=== PATIENT | male | born 2000 | race Caucasian/White ===

== ENCOUNTER 2020-05-25 12:49 | Emergency (ER) | payer SELFPAY ==
[2020-05-25 12:58] VITALS: BP 140/55; PULSE 101; RESP 16; TEMP 36.4; O2SAT 95
--- NOTE | 2020-05-25 13:14 | XRR_ITS ---
PROCEDURE INFORMATION: Exam: XR Chest Exam date and time: 05/25/2020 1:18 PM Age: 19 years old Clinical indication: Other: Reduced breath sounds TECHNIQUE: Imaging protocol: XR of the chest Views: 1 view. COMPARISON: No relevant prior studies available. FINDINGS: Lungs: Unremarkable. No consolidation. Pleural spaces: Unremarkable. No pleural effusion. No pneumothorax. Heart/Mediastinum: Unremarkable. No cardiomegaly. Bones/joints: Unremarkable. XR/XR chest 1V portable [id number] IMPRESSION: No acute findings.
--- NOTE | 2020-05-25 13:14 | CT_ITS ---
WS: [id number] CT HEAD NONCONTRAST HISTORY: possible new seizure TECHNIQUE: Contiguous axial imaging performed through the brain in 2.5 mm imaging. Bone and soft tiss ue windows. Sagittal and coronal reformats reviewed. All CT scans at [facility] use at ast one of these dose optimization techniques: automated exposure control; mA and/or kV adjustment pe r patient size (includes targeted exams where dose is matched to clinical indication); or iterative r econstruction. DLP: 885.06 mGy.cm COMPARISON: 05/25/2020 No acute intracranial hemorrhage, midline shift or mass effect. No atrophy or prior infarcts or herniation. Ventricles: Normal size with no hydrocephalus. Paranasal sinuses: As visualized are clear. Mastoid air cells: Well pneumatized. Calvarium and scalp: Skull is intact with no soft tissue edema or swelling. CT/CT head wo con* [id number] IMPRESSION: Negative head CT.
--- NOTE | 2020-05-25 13:16 | ECG_ITS ---
[facility] Test Date: 2020-05-25 Pat Name: Ramin Sandoval Department: Room: Gender: Male Crane Operator: : 2000 Requested By: Deny Chawla Order Number: [id number] Santiago MD: Jeffery Harp M.D. Measurements Intervals [place] Rate: 75 P: 37 IL: 168 QRS: 87 QRSD: 104 T: 43 QT: 377 QTc: 424 Interpretive Statements SINUS RHYTHM No previous ECG available for comparison Electronically Signed On 05-25-2020 20:19:56 CDT by Jeffery Harp M.D. [id number]
--- NOTE | 2020-05-25 13:17 | ED_ITS ---
HPI - Seizure General: Chief Complaint: Seizure Stated Complaint: SEIZURE Time Seen by Provider: 05/25/20 12:52 History of Present Illness: HPI Narrative: The patient is a 19-year-old male who comes to the ER after he thinks he had a seizure. He has a family history of seizure his mother has seizures. He says he used a dab yesterday which is apparently marijuana concentrate. He says he had no effect from it then but today he was hanging out with his friend and he says the next thing he knows he woke up in an ambulance. Report from the ambulance was that his friend said he had a seizure for approximately a minute. EMS gave him a milligram of Ativan with no effect and arrived at the ER. He is alert and oriented x3 though does appear slightly confused. Has a history of autism he says. We do not have a good description of what the seizure looked like from EMS or bystander. MD complaint: possible seizure Description of Episode: loss of consciousness Witnessed: Yes - by Bystander Trauma: No Seizure History: No Place: Home Possible Precipitating Event: drug use Associated symptoms: Deny chest pain or confusion Review of Systems General: Reports: 10 or more systems reviewed and unremarkable except in HPI and below Const: Denies: fatigue Eyes: Denies: change in vision, blurry vision or eye redness ENMT: Denies: throat pain, swelling of lips/tongue, ear or mastoid pain or nasal congestion Card: Denies: chest pain, palpitations, irregular heart rhythm, edema, dyspnea on exertion or orthopnea Resp: Denies: dyspnea, productive cough or non-productive cough GI: Denies: abdominal pain, diarrhea or GI cramping : Denies: flank pain, urinary frequency or urinary urgency Musc: Denies: neck pain, back pain, extremity pain, joint pain, joint redness, limited range of motion or muscle weakness Skin/Breast: Denies: rash, pruritus, erythema, skin pain or skin tenderness Neuro: Denies: headache(s), numbness in extremities, weakness in extremities, sensory changes, difficulty walking, dizziness, confusion or Slurred speech present Psych: Denies: anxiety or depression Endo: Denies: polyuria All/Imm: Denies: urticaria, throat swelling or tongue swelling PFSH ED PFSH: Social History (Updated 08/01/19 @ 18:16 by COLTEN Workman Smoking and tobacco status: never smoked Alcohol intake: never Physical Exam Const: COMMON NORMALS: no acute distress, average body habitus, patient oriented x3, no limitations, healthy appearing, alert and well nourished GENERAL APPEARANCE: cooperative, comfortable, well kempt and well developed ORIENTATION/CONSCIOUSNESS: Yes awake, Yes oriented to person, Yes oriented to place and Yes oriented to time HENMT: COMMON NORMALS: normocephalic, external ears normal and Normal external nose present HEAD & SCALP: normal to inspection and normocephalic NOSE: Normal external nose present EXTERNAL EAR: Yes external ears normal MOUTH: Normal oral and palatal mucosa present THROAT: posterior oropharynx normal Eye: COMMON NORMALS: Equal, round and reactive pupils present and EOMs intact bilaterally GENERAL EYE: appearance normal, both eyes and all related structures PUPIL: Yes Equal, round and reactive pupils present Neck/C-Spine: COMMON NORMALS: full ROM, no lymphadenopathy, no meningeal signs and no JVD GENERAL: Yes normal visual inspection Lymph: LYMPHATIC: no lymphadenopathy noted Chest: COMMONS NORMALS: normal inspection of the chest and normal palpation of entire chest wall Resp: COMMON NORMALS: normal respiratory effort, No retractions, No use of accessory muscles, clear to auscultation bilaterally and percussion normal EFFORT & INSPECTION: Yes able to speak in complete sentences AUSCULTATION: clear to auscultation bilaterally PERCUSSION: percussion normal Cardio: COMMON NORMALS: no JVD, regular rate, regular rhythm, S1 normal heart sound present, S2 normal heart sound present and Peripheral pulses 2+ throughout RATE: regular rate RHYTHM: regular rhythm HEART SOUNDS: S1 normal heart sound present and S2 normal heart sound present PERIPHERAL PULSES: Peripheral pulses 2+ throughout GI: COMMON NORMALS: Normal to inspection, nondistended, normoactive bowel sounds present, Soft to palpation, non-tender and no masses INSPECTION: Yes normal to inspection PALPATION: Yes Soft to palpation : COMMON NORMALS: Yes no CVA tenderness BLADDER/KIDNEY EXAM: Yes no CVA tenderness Back/Pelvis: COMMON NORMALS: no CVA tenderness, thoracic and lumbar spine normal to inspection, no thoracic nor lumbar tenderness and thoraco-lumbar ROM normal Extremity: COMMON NORMALS: normal to inspection, full ROM, capillary refill normal, no joint enlargement and no pedal edema GENERAL: Yes normal exam except as noted Neuro: COMMON NORMALS: patient oriented x3, CN's II-XII intact bilaterally, moves all extremities, no focal motor deficits, no sensory deficits noted and gait normal SENSORIUM/ORIENTATION: Yes alert, Yes oriented to person, Yes oriented to place and Yes oriented to time MENINGEAL SIGNS: Yes no meningeal signs Psych: COMMON NORMALS: mental status grossly normal, Normal thought process present, cooperative, normal affect and speech normal APPEARANCE: Yes well kempt ATTITUDE: Yes calm SPEECH: Yes normal speech THOUGHT PROCESS: Normal thought process present Skin: COMMON NORMALS: no rashes or lesions noted GENERAL SKIN EXAM: no r ashes or lesions noted Course Vital Signs: Vital signs: Vital Signs Temperature 97.6 F 05/25/20 12:58 Pulse Rate 66 05/25/20 20:21 Respiratory Rate 14 05/25/20 20:21 Blood Pressure 124/76 05/25/20 20:21 Pulse Oximetry 99 05/25/20 20:21 MDM - Seizure MDM Narrative: Medical decision making narrative: Patient likely had a seizure based on his lactic acid and symptoms. This is a new onset first-time seizure. He does have a family history his mother has epilepsy. He did use synthetic marijuana yesterday but that has been an entire day and he says he had no effect from it. Unclear if he knows what drug he took at all. However his lactic acid was severely elevated at 8.8 on arrival and repeat was 1.7 after fluids. He is stable for discharge. Discussed with Dr. Urbano who recommended outpatient EEG and follow-up with her. Placed case management referral to help with this. ER with worsening symptoms as he may require Keppra daily if he has more seizures. Discussed with him not to operate machinery or nor swim until he is at least 6 months seizure-free and cleared by neurology Lab Data: Labs: Lab Results 05/25/20 05/25/20 05/25/20 Range/Units 13:09 13:09 13:09 WBC 5.5 (4.5-13.0) 10^3/ uL RBC 5.07 (4.1-5.3) 10^6/u L Hgb 14.3 (11.7-16.6) g/dL Hct 43.1 (42.0-52.0) % MCV 85.0 (80-94) fL MCH 28.2 (28.0-34.0) pg MCHC 33.2 (30.0-36.0) g/dL RDW 12.7 (12.1-15.1) % Plt Count 216 (130-400) 10^3/c mm MPV 11.6 H (7.4-10.4) fL Neut % (Auto) 56.3 % Lymph % (Auto) 30.5 % [place] % (Auto) 8.2 % Eos % (Auto) 1.6 % Baso % (Auto) 0.7 % Neut # (Auto) 3.09 (1.8-8.0) 10^3/u L Lymph # (Auto) 1.7 (1.5-6.5) 10^3/u L [place] # (Auto) 0.5 (0.2-0.9) 10^3/u L Eos # (Auto) 0.1 (0.0-0.8) 10^3/u L Baso # (Auto) 0.0 (0.0-0.1) 10^3/u L Nucleated RBC % (a uto) 0 % Nucleated RBCs # 0.0 /100WBC Sodium Cancelled Potassium Cancelled Chloride Cancelled Carbon Dioxide Cancelled Anion Gap Cancelled BUN Cancelled Creatinine Cancelled GFR Calculation Cancelled Glucose Cancelled POC Glucose (70-110) mg/dL Calculated Osmolal ity Cancelled Lactate 8.8 H* (0.5-2.2) mmol/L Calcium Cancelled Total Bilirubin Cancelled AST Cancelled ALT Cancelled Alkaline Phosphata se Cancelled Creatine Kinase Cancelled Troponin T Gen 5 n g/L (0-15) ng/L Total Protein Cancelled Albumin Cancelled Globulin Cancelled TSH Cancelled Urine Color (Yellow) Urine Appearance (CLEAR) Urine pH (5-7) Ur Specific Gravit y (1.005-1.030) Urine Protein (Negative) Urine Glucose (UA) (Normal) Urine Ketones (Negative) Urine Blood (Negative) Urine Nitrate (Negative) Urine Bilirubin (Negative) Urine Urobilinogen (Negative) mg/dL Ur Leukocyte Lyudmila ase (Negative) Urine RBC (0-2) /hpf Urine WBC (0-5) /hpf Ur Squamous Epith Cells (0-5) /hpf Amorphous Sediment Urine Bacteria (NONE) /hpf Urine Opiates Scre en (Negative) ng/mL Ur Barbiturates Sc reen (Negative) ng/mL Ur Phencyclidine S crn (Negative) ng/mL Ur Amphetamines Sc reen (Negative) ng/mL U Benzodiazepines Scrn (Negative) ng/mL Urine Cocaine Scre en (Negative) ng/mL U Marijuana (THC) Screen (Negative) ng/mL Ethyl Alcohol Cancelled 05/25/20 05/25/20 05/25/20 Range/Units 13:20 13:20 13:44 WBC (4.5-13.0) 10^3/ uL RBC (4.1-5.3) 10^6/u L Hgb (11.7-16.6) g/dL Hct (42.0-52.0) % MCV (80-94) fL MCH (28.0-34.0) pg MCHC (30.0-36.0) g/dL RDW (12.1-15.1) % Plt Count (130-400) 10^3/c mm MPV (7.4-10.4) fL Neut % (Auto) % Lymph % (Auto) % [place] % (Auto) % Eos % (Auto) % Baso % (Auto) % Neut # (Auto) (1.8-8.0) 10^3/u L Lymph # (Auto) (1.5-6.5) 10^3/u L [place] # (Auto) (0.2-0.9) 10^3/u L Eos # (Auto) (0.0-0.8) 10^3/u L Baso # (Auto) (0.0-0.1) 10^3/u L Nucleated RBC % (a uto) % Nucleated RBCs # /100WBC Sodium Potassium Chloride Carbon Dioxide Anion Gap BUN Creatinine GFR Calculation Glucose POC Glucose 91 (70-110) mg/dL Calculated Osmolal ity Lactate (0.5-2.2) mmol/L Calcium Total Bilirubin AST ALT Alkaline Phosphata se Creatine Kinase Troponin T Gen 5 n g/L (0-15) ng/L Total Protein Albumin Globulin TSH Urine Color Yellow (Yellow) Urine Appearance Clear (CLEAR) Urine pH 7 (5-7) Ur Specific Gravit y 1.015 (1.005-1.030) Urine Protein Neg (Negative) Urine Glucose (UA) Norm (Normal) Urine Ketones 1+ H (Negative) Urine Blood 2+ H (Negative) Urine Nitrate Negative (Negative) Urine Bilirubin Neg (Negative) Urine Urobilinogen Norm (Negative) mg/dL Ur Leukocyte Lyudmila ase Negative (Negative) Urine RBC 0-4 H (0-2) /hpf Urine WBC None (0-5) /hpf Ur Squamous Epith Cells 0-4 H (0-5) /hpf Amorphous Sediment Not Reportable Urine Bacteria Trace (NONE) /hpf Urine Opiates Scre en Negative (Negative) ng/mL Ur Barbiturates Sc reen Negative (Negative) ng/mL Ur Phencyclidine S crn Negative (Negative) ng/mL Ur Amphetamines Sc reen Negative (Negative) ng/mL U Benzodiazepines Scrn Negative (Negative) ng/mL Urine Cocaine Scre en Negative (Negative) ng/mL U Marijuana (THC) Screen Positive H (Negative) ng/mL Ethyl Alcohol 05/25/20 05/25/20 05/25/20 Range/Units 14:07 14:07 17:36 WBC (4.5-13.0) 10^3/ uL RBC (4.1-5.3) 10^6/u L Hgb (11.7-16.6) g/dL Hct (42.0-52.0) % MCV (80-94) fL MCH (28.0-34.0) pg MCHC (30.0-36.0) g/dL RDW (12.1-15.1) % Plt Count (130-400) 10^3/c mm MPV (7.4-10.4) fL Neut % (Auto) % Lymph % (Auto) % [place] % (Auto) % Eos % (Auto) % Baso % (Auto) % Neut # (Auto) (1.8-8.0) 10^3/u L Lymph # (Auto) (1.5-6.5) 10^3/u L [place] # (Auto) (0.2-0.9) 10^3/u L Eos # (Auto) (0.0-0.8) 10^3/u L Baso # (Auto) (0.0-0.1) 10^3/u L Nucleated RBC % (a uto) % Nucleated RBCs # /100WBC Sodium 135 L Potassium 4.3 Chloride 100 Carbon Dioxide 26 Anion Gap 13.3 BUN 17 Creatinine 1.0 GFR Calculation 95.3 Glucose 89 POC Glucose (70-110) mg/dL Calculated Osmolal ity 281 L Lactate 1.7 (0.5-2.2) mmol/L Calcium 9.2 Total Bilirubin 0.4 AST 29 ALT 43 H Alkaline Phosphata se 87 Creatine Kinase 199 Troponin T Gen 5 n g/L 6 (0-15) ng/L Total Protein 7.8 Albumin 4.4 Globulin 3.4 TSH 4.16 Urine Color (Yellow) Urine Appearance (CLEAR) Urine pH (5-7) Ur Specific Gravit y (1.005-1.030) Urine Protein (Negative) Urine Glucose (UA) (Normal) Urine Ketones (Negative) Urine Blood (Negative) Urine Nitrate (Negative) Urine Bilirubin (Negative) Urine Urobilinogen (Negative) mg/dL Ur Leukocyte Lyudmila ase (Negative) Urine RBC (0-2) /hpf Urine WBC (0-5) /hpf Ur Squamous Epith Cells (0-5) /hpf Amorphous Sediment Urine Bacteria (NONE) /hpf Urine Opiates Scre en (Negative) ng/mL Ur Barbiturates Sc reen (Negative) ng/mL Ur Phencyclidine S crn (Negative) ng/mL Ur Amphetamines Sc reen (Negative) ng/mL U Benzodiazepines Scrn (Negative) ng/mL Urine Cocaine Scre en (Negative) ng/mL U Marijuana (THC) Screen (Negative) ng/mL Ethyl Alcohol < 10 Discharge Plan Discharge Patient Disposition: Home Clinical Impression: New onset seizure Condition: Stable Prescriptions: No Action No Known Home Medications RF: 0 Discharge Orders: Discharge ED (Routine); Ordered 05/25/20 Ordered By: Deny Chawla Referrals: Mamadou Spencer MD [Primary Care Provider] - Discharge Diet: Advance as tolerated Discharge Activity: Resume usual activity Patient Instructions: New-Onset Seizure in Adults (ED), Opioid Safety Activity Restrictions/Additional Instructions: You have likely had a seizure for the first time. I have placed a case management referral to help you get an appointment for an EEG and a follow-up with neurologist Dr. Urbano. They should be calling you tomorrow to help set this up. After having a seizure you may not drive nor swim until your 6-month seizure-free from today. If you have another seizure please return to the ER. Make sure you follow-up with neurology as you may require medication in the future. If you have another seizure you may require daily medication. Coding Level of Care Code ED Asbestos Abatement Technician for [facility] Exam Comprehensive
[2020-05-25 13:24] LABS: Basophils % 0.7 %; Eosinophils # 0.1 10^3/uL (0.0-0.8); Eosinophils % 1.6 %; Hematocrit 43.1 % (42.0-52.0); Hemoglobin 14.3 g/dL (11.7-16.6); Lymphocytes # 1.7 10^3/uL (1.5-6.5); Lymphocytes % 30.5 %; Mean Corpuscular HGB Conc 33.2 g/dL (30.0-36.0); Mean Corpuscular Hemoglobin 28.2 pg (28.0-34.0); Mean Platelet Volume 11.6 fL (7.4-10.4); Monocytes # 0.5 10^3/uL (0.2-0.9); Monocytes % 8.2 %; Neutrophils # 3.09 10^3/uL (1.8-8.0); Neutrophils % 56.3 %; Nucleated Red Blood Cells % 0 %; Platelet Count 216 10^3/cmm (130-400); Red Blood Count 5.07 10^6/uL (4.1-5.3); Red Cell Distribution Width 12.7 % (12.1-15.1); White Blood Count 5.5 10^3/uL (4.5-13.0)
[2020-05-25 13:49] LABS: Glucose Point of Care 91 mg/dL (70-110)
[2020-05-25 14:00] LABS: Amphetamines Screen Urine Negative (Negative); Barbiturates Screen Urine Negative (Negative); Benzodiazepines Screen Urine Negative (Negative); Cocaine Screen Urine Negative (Negative); Opiate Screen Urine Negative (Negative); PCP Screen Urine Negative (Negative); THC Screen Urine Positive (Negative)
[2020-05-25 14:04] LABS: Lactate (Lactic Acid level) 8.8 mmol/L (0.5-2.2)
[2020-05-25 14:07] LABS: Add Urine Microscopic? YES; Bilirubin Urine Neg (Negative); Blood Urine 2+ (Negative); Glucose Urine UA Norm (Normal); Ketones Urine 1+ (Negative); Leukocyte Esterase Urine Negative (Negative); Nitrate Urine Negative (Negative); Protein Urine Neg (Negative); Specific Gravity, Urine 1.015 (1.005-1.030); Urine Appearance Clear (CLEAR); Urine Color Yellow (Yellow); Urobilinogen Urine Norm (Negative); pH Urine 7 (5-7)
[2020-05-25 14:10] LABS: RBC Urine 0-4 /hpf (0-2); Squamous Epithelial Cell Urine 0-4 /hpf (0-5)
[2020-05-25 14:11] LABS: Add Urine Culture? No; Bacteria Urine TRACE /hpf
[2020-05-25] MEDS: sodium chloride 0.9% 1,000 ML 999 ML IV ×4 (14:23→16:48)
[2020-05-25 14:45] LABS: Alanine Aminotransferase 43 U/L (0-41); Albumin Level 4.4 g/dL (3.5-5.2); Alkaline Phosphatase 87 IU/L (40-130); Anion Gap 13.3 (5-19); Aspartate Amino Transferase 29 U/L (0-40); Blood Urea Nitrogen 17 mg/dL (6-20); Calcium 9.2 mg/dL (8.5-10.5); Carbon Dioxide 26 mmol/L (22-29); Chloride 100 mmol/L (98-107); Creatine Phosphokinase 199 U/L (39-308); Globulin 3.4 g/dL (1.3-4.6); Glomerular Filtration Rate 95.3 mL/min (90-130); Glucose 89 mg/dL (65-115); Osmolality Calculated 281 mOsm/kg (285-295); Potassium 4.3 mmol/L (3.5-5.1); Sodium 135 mmol/L (136-145); Thyroid Stimulating Hormone 4.16 uIU/mL (0.27-4.20); Total Bilirubin 0.4 mg/dL (0.15-1.2); Total Protein 7.8 g/dL (6.6-8.7)
[2020-05-25 14:48] LABS: Alcohol Level < 10 mg/dL (0-10)
[2020-05-25 15:03] VITALS: BP 118/66; PULSE 71; RESP 20; O2SAT 97
[2020-05-25 15:19] LABS: Troponin T (5th) Once 6 ng/L (0-15)
[2020-05-25 20:21] VITALS: BP 124/76; PULSE 66; RESP 14; O2SAT 99
[2020-05-25 21:11] LABS: Lactate (Lactic Acid level) 1.7 mmol/L (0.5-2.2)
--- NOTE | 2020-05-26 10:15 | DCPLANNER ---
customer acquisition manager had message to schedule a follow up appointment for patient with Dr. Urbano, and for an EEG. customer acquisition manager called the office of Dr. Urbano, to speak with Emely Correia. customer acquisition manager was unable to speak with Emely at this time, a voicemail was left for her regarding the patient. customer acquisition manager left patients information and the reason for the referral.
--- NOTE | 2020-06-09 14:29 | DCPLANNER ---
Addendum entered by Filomena Manzo 06/09/20 15:37: Emely called block and case maker and stated that when clinic called patient to schedule an appointment, patient stated that he did not want to see Dr. Urbano that he wanted to be referred somewhere else. manager water wastewater called patient to see who he wanted to be referred to, patient stated that he did not know who he wanted to be referred to. Patient stated that when he decides who he wants to see that he will call block and case maker to refer patient. Original Note: manager water wastewater called the office of Dr. Urbano to confirm if a follow up appointment had been scheduled for patient. manager water wastewater spoke with Andreas, a message will be given to Emely Correia.
--- NOTE | 2020-06-24 12:35 | DCPLANNER ---
life manager was asked to speak with patient about getting established with a primary care physician. life manager spoke with patient, he stated that he would like to be seen by Lyubov Tobin in [place] at [facility]. life manager called the clinic in [place], spoke with Princess, gave clinic patients information. A follow up appointment was scheduled for Tuesday, June 30, 2020 at 1:30 with Lyubov. life manager called patient and gave patient the appointment information.
== END 2020-05-25 21:32 | disposition home or self-care (01) ==
PROVIDERS: Emergency Provider Family Medicine; PCP Family Medicine
DX: G40.89 Other seizures (principal)
CPT/HCPCS: 36415; 36416; 70450; 71045; 80053; 80306; 80307; 81001; 82550; 82962; 83605; 84443; 84484; 85025; 93005; 96360; 96361; 99283; J7030; J7040

== ENCOUNTER 2020-06-20 11:02 | Emergency (ER) | payer SELFPAY ==
[2020-06-20 11:03] VITALS: BP 125/73; PULSE 88; RESP 17; TEMP 36.7; O2SAT 99; BMI 32.8
[2020-06-20 11:12] VITALS: BP 125/73; PULSE 66; RESP 18; O2SAT 98
[2020-06-20 11:26] LABS: Basophils # 0.1 10^3/uL (0.0-0.1); Basophils % 0.9 %; Eosinophils # 0.2 10^3/uL (0.0-0.8); Hematocrit 47.6 % (42.0-52.0); Lymphocytes # 3.1 10^3/uL (1.5-6.5); Lymphocytes % 40.6 %; Mean Corpuscular HGB Conc 31.5 g/dL (30.0-36.0); Mean Corpuscular Hemoglobin 27.9 pg (28.0-34.0); Mean Corpuscular Volume 88.6 fL (80-94); Mean Platelet Volume 11.5 fL (7.4-10.4); Monocytes # 0.6 10^3/uL (0.2-0.9); Monocytes % 7.9 %; Neutrophils # 3.62 10^3/uL (1.8-8.0); Neutrophils % 47.3 %; Nucleated Red Blood Cells % 0 %; Platelet Count 268 10^3/cmm (130-400); Red Blood Count 5.37 10^6/uL (4.1-5.3); Red Cell Distribution Width 12.7 % (12.1-15.1); White Blood Count 7.6 10^3/uL (4.5-13.0)
[2020-06-20 11:38] LABS: Add Urine Microscopic? NO; Charge for UA Resulting for Rev
[2020-06-20 11:42] VITALS: BP 125/73; PULSE 69; RESP 18; O2SAT 96
--- NOTE | 2020-06-20 11:42 | PC.NURSE ---
Alert and oriented to time, place and events
[2020-06-20 11:43] LABS: Bilirubin Urine Neg (Negative); Blood Urine Neg (Negative); Glucose Urine UA Norm (Normal); Ketones Urine 1+ (Negative); Nitrate Urine Negative (Negative); Protein Urine Neg (Negative); Specific Gravity, Urine 1.025 (1.005-1.030); Urine Appearance Clear (CLEAR); Urine Color Yellow (Yellow); pH Urine 5 (5-7)
[2020-06-20 11:44] LABS: Leukocyte Esterase Urine Negative (Negative); Urobilinogen Urine Norm (Negative)
[2020-06-20 11:52] LABS: Amphetamines Screen Urine Negative (Negative); Barbiturates Screen Urine Negative (Negative); Benzodiazepines Screen Urine Negative (Negative); Cocaine Screen Urine Negative (Negative); Opiate Screen Urine Negative (Negative); PCP Screen Urine Negative (Negative); THC Screen Urine Positive (Negative)
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
[2020-06-20 12:12] VITALS: BP 115/71; PULSE 64; RESP 18; O2SAT 98
[2020-06-20 12:20] LABS: Alanine Aminotransferase 25 U/L (0-41); Alkaline Phosphatase 112 IU/L (40-130); Anion Gap 28.6 (5-19); Aspartate Amino Transferase 21 U/L (0-40); Blood Urea Nitrogen 16 mg/dL (6-20); Calcium 9.8 mg/dL (8.5-10.5); Carbon Dioxide 14 mmol/L (22-29); Chloride 97 mmol/L (98-107); Creatine Phosphokinase 146 U/L (39-308); Globulin 3.4 g/dL (1.3-4.6); Glomerular Filtration Rate 70.4 mL/min (90-130); Glucose 108 mg/dL (65-115); Magnesium 2.2 mg/dL (1.7-2.3); Osmolality Calculated 282 mOsm/kg (285-295); Potassium 4.6 mmol/L (3.5-5.1); Sodium 135 mmol/L (136-145); Thyroid Stimulating Hormone 3.92 uIU/mL (0.27-4.20); Total Bilirubin 0.7 mg/dL (0.15-1.2); Total Protein 8.4 g/dL (6.6-8.7)
[2020-06-20 12:23] LABS: Alcohol Level < 10 mg/dL (0-10)
[2020-06-20 13:00] VITALS: BP 115/70; PULSE 82; RESP 18; O2SAT 100
[2020-06-20 14:06] VITALS: BP 107/59; PULSE 71; RESP 16; O2SAT 98
== END 2020-06-20 14:06 | disposition home or self-care (01) ==
PROVIDERS: Emergency Provider Emergency Medicine
DX: G40.89 Other seizures (principal)
CPT/HCPCS: 80053; 80306; 80307; 81003; 82550; 83735; 84443; 85025; 96374; 99283; J1953

== ENCOUNTER 2021-08-29 07:29 | Emergency (ER) | payer SELFPAY ==
[2021-08-29 07:37] VITALS: BP 142/61; PULSE 67; RESP 12; TEMP 36.6; O2SAT 100; BMI 29.0
[2021-08-29 08:11] VITALS: BP 126/78; PULSE 76; O2SAT 99
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
[2021-08-29 08:40] LABS: Basophils % 0.3 %; Eosinophils % 0.2 %; Hematocrit 46.4 % (42.0-52.0); Lymphocytes # 0.8 10^3/uL (0.8-4.8); Lymphocytes % 6.4 %; Mean Corpuscular HGB Conc 34.5 g/dL (30.0-36.0); Mean Corpuscular Volume 81.3 fl (80-94); Mean Platelet Volume 11.1 fL (7.4-10.4); Monocytes # 0.5 10^3/uL (0.2-0.9); Monocytes % 4.4 %; Neutrophils # 10.48 10^3/uL (1.8-7.7); Neutrophils % 88.4 %; Nucleated Red Blood Cells % 0 %; Platelet Count 227 10^3/cmm (130-400); Red Blood Count 5.71 10^6/uL (4.1-5.3); Red Cell Distribution Width 12.6 % (12.1-15.1); White Blood Count 11.9 10^3/uL (4.0-10.0)
[2021-08-29 08:59] LABS: Alanine Aminotransferase 14 U/L (0-41); Albumin Level 5.4 g/dL (3.5-5.2); Alkaline Phosphatase 95 IU/L (40-130); Anion Gap 15.2 (5-19); Aspartate Amino Transferase 19 U/L (0-40); Blood Urea Nitrogen 14 mg/dL (6-20); Calcium 9.9 mg/dL (8.5-10.5); Carbon Dioxide 26 mmol/L (22-29); Chloride 101 mmol/L (98-107); Creatine Phosphokinase 236 U/L (39-308); Glomerular Filtration Rate 93.4 mL/min (90-130); Glucose 88 mg/dL (65-115); Osmolality Calculated 286 mOsm/kg (285-295); Potassium 4.2 mmol/L (3.5-5.1); Sodium 138 mmol/L (136-145); Total Bilirubin 0.4 mg/dL (0.15-1.2); Total Protein 8.4 g/dL (6.6-8.7)
[2021-08-29 09:00] VITALS: BP 132/93; PULSE 77; O2SAT 100
[2021-08-29] MEDS: tetanus-dipt-pertussis 0.5 mL SDV IM (09:20)
[2021-08-29 10:23] VITALS: BP 127/67; PULSE 82; O2SAT 100
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
--- NOTE | 2021-08-29 12:30 | PC.SOCIAL ---
Addendum entered by Filomena Manzo 09/16/21 14:19: Patients appointment was rescheduled. Addendum entered by Filomena Manzo 09/08/21 16:22: Patient has a follow up appointment scheduled for Sunday, September 12, 2021 at 12:[address] Urbano with neurology, clinic will call patient with appointment information. Original Note: Neurology Follow Up Consult received for neuro follow up; message sent to neurology clinic. Clinic will contact patient with appointment date and time.
[2021-08-30 10:03] LABS: Levetiracetam Immunoassy <2.0 mcg/mL (6.0-46.0)
== END 2021-08-29 10:20 | disposition home or self-care (01) ==
PROVIDERS: Emergency Provider Family Medicine
DX: G40.409 Other generalized epilepsy and epileptic syndromes, not intractable, without status epilepticus (principal); S01.81XA Laceration without foreign body of other part of head, initial encounter; S01.512A Laceration without foreign body of oral cavity, initial encounter; Z23 Encounter for immunization; X58.XXXA Exposure to other specified factors, initial encounter
CPT/HCPCS: 12015; 70450; 70486; 80053; 80177; 82550; 83735; 85025; 90471; 90715; 96365; 99284; J1953

== ENCOUNTER 2021-09-03 05:10 | Emergency (ER) | payer SELFPAY ==
[2021-09-03 05:29] VITALS: BP 126/81; PULSE 104; RESP 18; TEMP 36.4; O2SAT 97; BMI 29.0
[2021-09-03 05:32] VITALS: BP 164/79; PULSE 62; RESP 16; O2SAT 97
[2021-09-03] MEDS: dexamethasone 4 mg Tablet 8 MG PO (06:25)
[2021-09-03] MEDS: amoxicillin-clav 875-125 mg Tablet 1 TAB PO (06:35)
[2021-09-03] MEDS: oxyCODONE-APAP 5-325 mg Tablet 3 TAB PO (06:38)
[2021-09-03 06:39] VITALS: BP 139/73; PULSE 63; RESP 16; O2SAT 96
--- NOTE | 2021-09-03 16:36 | W.ED.GENADLT ---
HPI - General Adult General: Chief complaint: General Medical Stated complaint: possible cheek infection Time Seen by Provider: 09/03/21 05:50 Source: patient History of Present Illness: 21 year old male who was seen for a facial laceration a few days ago. He was repaired. He was prescribed antibiotics. He did not fill them. Overnight last night, he noticed significant swelling to the left cheek. It is quite tender. He is afraid there is an Abscess there. No fever, no vomiting. Onset (ago): hour(s) Location: face Radiation: non-radiation Severity: moderate Quality: stabbing and aching Pain Consistency: constant Relieving factors: none Associated symptoms: Deny chest pain, dyspnea, nausea or vomiting Review of Systems Const: Denies: fever(s) or chills Eyes: Denies: change in vision ENMT: Reports: mouth pain, swelling of lips/tongue and sinus pain; Denies: throat pain, bleeding gums, dental pain, ear or mastoid pain, nasal discharge, nasal congestion or nasal obstruction Card: Denies: chest pain Resp: Denies: dyspnea GI: Denies: nausea or vomiting [facility] ED PFSH: Medical History (Updated 09/03/21 @ 06:27 by Venu Plasencia DO) Seizure disorder Social History (Updated 08/01/19 @ 18:16 by Deborah Blackwell LPN) Smoking and tobacco status: never smoked Alcohol intake: never Physical Exam Const: COMMON NORMALS: no acute distress GENERAL APPEARANCE: cooperative HENMT: COMMON NORMALS: normocephalic and Normal external nose present HEAD & SCALP: normocephalic FACE & SINUS: erythema, fluctuance (2.5 cm abscess to left cheek), laceration (sutures intact) and Facial tenderness on exam of face and sinuses; face not symmetric NOSE: Normal external nose present and Normal nares present THROAT: posterior oropharynx normal Eye: COMMON NORMALS: Equal, round and reactive pupils present and EOMs intact bilaterally CONJUNCTIVA: Yes conjunctival abnormal positive right subconjunctival hemorrhage PUPIL: Yes Equal, round and reactive pupils present Neck/C-Spine: COMMON NORMALS: full ROM and supple GENERAL: Yes trachea midline and No anterior neck swelling Chest: CHEST: Yes Symmetrical chest wall rise Resp: COMMON NORMALS: normal respiratory effort, No retractions, No use of accessory muscles and clear to auscultation bilaterally AUSCULTATION: clear to auscultation bilaterally Cardio: COMMON NORMALS: regular rate and regular rhythm RATE: regular rate RHYTHM: regular rhythm Neuro: ROSEMARIE COMA SCALE: document GCS findings Rosemarie coma scale eye opening: Spontaneous Rosemarei coma scale verbal response: Orientated Rosemarie coma scale motor response: Obey commands Rosemarie coma scale total score: 15 Procedures Abscess I/D Site: face Side (if applicable): left Sedation/analgesia: none Local Anesthetic: lidocaine 1% Amount of anesthesia used (mL): 5 Technique: incised with #11 blade Amount of fluid expressed (mL): 12 Irrigation: No Packing used?: none Course Vital Signs: Vital signs: Vital Signs Temperature 97.6 F 09/03/21 05:29 Pulse Rate 63 09/03/21 06:39 Respiratory Rate 16 09/03/21 06:39 Blood Pressure 139/73 09/03/21 06:39 Pulse Oximetry 96 09/03/21 06:39 MDM - General Adult Medical Decision Making He tolerated well. No complications. He will fill his augmentin prescription. He was given one this morning. He was also given one dose of dexamethasone for the swelling. Discharge Plan Discharge Patient Disposition: Home Clinical Impression: Facial laceration, Abscess of face Condition: Stable Prescriptions: No Action Augmentin 500-125 mg tablet 1 tab PO BID Qty: 10 0RF Keppra XR 500 mg tablet extended release 24 hr 1,000 mg PO DAILY Qty: 60 0RF Discharge Orders: Discharge ED (Routine); Ordered 09/03/21 Ordered By: Venu Plasencia Discharge Diet: Advance as tolerated Discharge Activity: Increase activity as tolerated Patient Instructions: Opioid Safety Activity Restrictions/Additional Instructions: Fill your antibiotic prescription as instructed. Take pain medication for severe pain ice may help with swelling today. You may wash area with soap and running water. Do not soak. return for worsening swelling, drainage, fever despite 2-3 doses of antibiotics. Coding Level of Care Code ED Wind Field Service Manager for Jose Juan Cortes
== END 2021-09-03 06:43 | disposition home or self-care (01) ==
PROVIDERS: Emergency Provider Emergency Medicine
DX: S01.412A Laceration without foreign body of left cheek and temporomandibular area, initial encounter (principal); L02.01 Cutaneous abscess of face; X58.XXXA Exposure to other specified factors, initial encounter
CPT/HCPCS: 10060; 99283; J8540

== ENCOUNTER → 2022-02-21 08:23 | Outpatient (BNVA) | payer SELFPAY | PROVIDERS: Visit Provider Nurse Practitioner | DX: G40.909 Epilepsy, unspecified, not intractable, without status epilepticus (principal) | CPT/HCPCS: 80201 ==

== ENCOUNTER → 2022-10-03 16:25 | Outpatient (BNVA) | payer SELFPAY | PROVIDERS: PCP Nurse Practitioner; Visit Provider Nurse Practitioner | DX: G40.909 Epilepsy, unspecified, not intractable, without status epilepticus (principal) | CPT/HCPCS: 80201 ==

== ENCOUNTER 2023-03-16 08:03 | Outpatient (CLI) | payer SELFPAY | END 2023-03-16 08:04 | disposition home or self-care (01) | LOC: LAB 08:04 | PROVIDERS: PCP Nurse Practitioner; Visit Provider Psychiatry & Neurology Neurology | DX: G40.909 Epilepsy, unspecified, not intractable, without status epilepticus (principal) | CPT/HCPCS: 36415; 80201 ==

== ENCOUNTER 2023-03-27 14:57 | Outpatient (CLI) | payer SELFPAY ==
[2023-03-27 15:29] LABS: Basophils % 0.7 %; Eosinophils # 0.2 10^3/uL (0.0-0.8); Eosinophils % 2.5 %; Lymphocytes # 1.8 10^3/uL (0.8-4.8); Lymphocytes % 29.8 %; Mean Corpuscular HGB Conc 33.3 g/dL (30-55); Mean Corpuscular Hemoglobin 27.6 pg (27-33); Mean Corpuscular Volume 82.8 fl (82-101); Mean Platelet Volume 10.7 fL (7.4-10.4); Monocytes # 0.3 10^3/uL (0.2-0.9); Monocytes % 5.7 %; Neutrophils # 3.65 10^3/uL (1.8-7.7); Neutrophils % 61.1 %; Nucleated Red Blood Cells % 0 %; Platelet Count 233 10^3/cmm (157-399); Red Blood Count 5.07 10^6/uL (3.85-5.65); Red Cell Distribution Width 12.9 % (12.1-15.1); White Blood Count 5.97 10^3/uL (3.29-11.43)
[2023-03-27 16:15] LABS: 25 Hydroxy Vitamin D 14 ng/mL (30-100); Alanine Aminotransferase 10 U/L (0-41); Albumin Level 4.4 g/dL (3.5-5.2); Alkaline Phosphatase 89 U/L (40-130); Aspartate Amino Transferase 13 U/L (0-40); Blood Urea Nitrogen 16 mg/dL (6-20); Calcium 9.6 mg/dL (8.5-10.5); Carbon Dioxide 23 mmol/L (22-29); Chloride 106 mmol/L (98-107); Glucose 92 mg/dL (65-115); Osmolality Calculated 291 mOsm/kg (285-295); Sodium 140 mmol/L (136-145); Thyroid Stimulating Hormone 1.38 uIU/mL (0.27-4.20); Total Bilirubin 0.3 mg/dL (0.15-1.2); Total Protein 7.4 g/dL (6.6-8.7); Vitamin B12 404 pg/mL (232-1245)
[2023-03-27 16:17] LABS: Folate Level 8.1 ng/mL (4.5-32.2)
[2023-03-27 21:18] LABS: Free T4 Free Thyroxine 0.98 ng/dL (0.82-1.77); T3 Free 2.5 PG/ML (2.0-4.4)
[2023-03-30 10:29] LABS: Methylmalonic Acid 147 nmol/L (87-318)
== END 2023-03-27 14:58 | disposition home or self-care (01) ==
LOC: LAB 15:00
PROVIDERS: Visit Provider Psychiatry & Neurology Neurology
DX: G40.909 Epilepsy, unspecified, not intractable, without status epilepticus (principal)
CPT/HCPCS: 36415; 80053; 82306; 82607; 82746; 83735; 83921; 84439; 84443; 84481; 85025

== ENCOUNTER 2024-09-01 07:10 | Emergency (ER) | payer OTHER, SELFPAY ==
[2024-09-01 07:24] VITALS: BP 115/77; PULSE 63; RESP 18; TEMP 36.7; O2SAT 98
[2024-09-01] MEDS: tetanus-dipt-pertussis 0.5 mL SDV IM (07:51)
--- NOTE | 2024-09-01 08:03 | ED_ITS ---
HPI - Wound/Laceration General: Chief Complaint: Wound/Laceration Stated Complaint: Lac on finger Time Seen by Provider: 09/01/24 07:20 History of Present Illness: 24-year-old male who presents emergency room laceration on his right third finger. He has a laceration from the PIP joint on the lateral aspect extending proximally. He is able to flex and extend he states the tip of his finger feels numb when he arrives here. He is able to hold against resistance he is unsure of his last tetanus shot. Occurred at work when his hand struck a piece of sharp metal projecting from the wall. Related Data Previous Rx's ?Medication ?Instructions ?Recorded cholecalciferol (vitamin D3) 1,250 50,000 unit PO .daniel mccray #12 caps 03/19/24 mcg (50,000 unit) capsule topiramate 50 mg tablet (Topamax) 150 mg (3 x 50 mg) P O BID #180 tabs 03/19/24 mupirocin 2 % topical ointment 1 applic topical BID #1 5 grams 09/01/24 (Centany) Allergies Allergy/AdvReac Type Severity Reaction Status Date / Time levetiracetam (From [facility]) AdvReac ADR-Drowsy Verified 08/14/23 14:45 [facility] ED PFSH: Medical History Seizure disorder Surgical History No history of previous surgery Family History Other Diabetes Lung disease Denies family history of CAD (coronary artery disease) Chronic kidney disease (CKD) Cancer Social History Smoking and tobacco/nicotine status: never used tobacco/nicotine Second hand smoke exposure: No Alcohol intake: current Alcohol intake frequency: holidays/special occasions only Substance/Drug Use: current Adopted: No Caregiver/support person: Yes Lives independently: Yes Household members: family Housing: House Marital status: Single Number of children: 0 service: No Current occupational status: unemployed Current occupational exposures/hazards: No Pets and animals: No Do you think of yourself as: Straight/Heterosexual Current gender identity: Male Physical Exam Const: GENERAL APPEARANCE: cooperative ORIENTATION/CONSCIOUSNESS: Yes awake, Yes oriented to person, Yes oriented to place and Yes oriented to time HENMT: COMMON NORMALS: normocephalic, atraumatic and hearing grossly normal bilaterally HEAD & SCALP: normocephalic and atraumatic Resp: COMMON NORMALS: normal respiratory effort, No retractions, No use of accessory muscles and clear to auscultation bilaterally AUSCULTATION: clear to auscultation bilaterally Cardio: COMMON NORMALS: regular rate, regular rhythm and No murmurs present (Cardio) RATE: regular rate RHYTHM: regular rhythm Extremity: COMMON NORMALS: capillary refill normal, no clubbing, cyanosis or edema, no calf tenderness and no pedal edema OTHER: Laceration of the left third finger palmar surface 4 cm in length. Patient able to flex and hold against resistance. Neuro: SENSORIUM/ORIENTATION: Yes oriented to person, Yes oriented to place and Yes oriented to time Skin: COMMON NORMALS: no rashes or lesions noted GENERAL SKIN EXAM: no rashes or lesions noted Procedures Laceration Laceration 1: Site: hand Side (If applicable): right Size (cm): 4 Description: linear Depth: simple, single layer Pre-repair: wound explored and irrigated extensively Skin layer closed with: other (Prolene) Size (cm): 4-0 Number of sutures: 1 Technique: running (Locking) Nerve Block Nerve Block 1: Time out performed: Yes Local Anesthetic: lidocaine 1% Amount of anesthesia used (mL): 5 Side: right Nerve Blocks: digital (Third finger) Procedure Successful: Yes Patient Tolerated Procedure: well Complications: none Additional Comments: Initially anesthesia 2 mL on each side of the third finger. There is a delay in returning to the patient due to other patient needs in the department the block was augmented as another half milliliter on each side with good anesthesia patient tolerated well Course Vital Signs: Vital signs: Vital Signs Temperature 98.0 F 09/01/24 07:24 Pulse Rate 59 L 09/01/24 09:41 Respiratory Rate 18 09/01/24 07:24 Blood Pressure 117/77 09/01/24 09:41 Pulse Oximetry 100 09/01/24 09:41 Oxygen Delivery Me thod Room Air 09/01/24 07:24 MDM - Wound/Laceration Medical Decision Making Digital nerve block closed with running locking sutures wound care instructions given tetanus updated sutures to be removed in 10 to 14 days No radiology studies performed this visit Discharge Plan Discharge Patient Disposition: Home Clinical Impression: Laceration Condition: Stable Prescriptions: New mupirocin [Centany] 2 % ointment 1 applic topical BID Qty: 15 0RF No Action cholecalciferol (vitamin D3) 1,250 mcg (50,000 unit) capsule 50,000 unit PO .weekly Qty: 12 5RF topiramate [Topamax] 50 mg tablet 150 mg PO BID Qty: 180 2RF Discharge Orders: Discharge ED (Routine); Ordered 09/01/24 Ordered By: Zak Sim Discharge Diet: Usual diet Discharge Activity: Resume usual activity Patient Instructions: Laceration (ED), Opioid Safety, Pain Management, Patient Portal & Pierce Instructions Activity Restrictions/Additional Instructions: Thank you for choosing [facility] for your healthcare needs today. It is very important that you follow up as instructed or that you return to the Emergency Department should you have concerns or if your condition changes or worsens in any way. You are seen in the emergency room with complaints of a laceration to your right third finger. The laceration was closed with sutures these will need to be removed in approximately 10 to 14 days. Apply topical antibiotic ointment to the wound at least once a day. Keep covered while at work. If there are any signs of infection return to the emergency room. Your tetanus was updated today while you are in the emergency room. Print Language: Cymro Coding Level of Care Code ED Wind Field Manager for Jose Juan Cortes
[2024-09-01] MEDS: lidocaine 1% 10 ML INJ 20 ML XX (08:33)
[2024-09-01 08:48] VITALS: PULSE 56; O2SAT 100
[2024-09-01 09:41] VITALS: BP 117/77; PULSE 59; O2SAT 100
== END 2024-09-01 09:44 | disposition home or self-care (01) ==
PROVIDERS: Emergency Provider Family Medicine
DX: S61.212A Laceration without foreign body of right middle finger without damage to nail, initial encounter (principal); X58.XXXA Exposure to other specified factors, initial encounter
CPT/HCPCS: 12002; 90471; 90715; 99283; J9999

== ENCOUNTER → 2024-09-19 17:39 | Outpatient (BNVA) | payer SELFPAY | PROVIDERS: Visit Provider Emergency Medicine | DX: R36.1 Hematospermia (principal) | CPT/HCPCS: 81000 ==

== ENCOUNTER 2024-12-22 17:26 | Emergency (ER) | payer MEDICAID, SELFPAY ==
[2024-12-22 17:27] VITALS: BP 109/67; PULSE 76; RESP 16; TEMP 36.8; O2SAT 99; BMI 31.3
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
[2024-12-22] MEDS: iohexol 350 mg/mL 500 mL Btl (per mL) IV (18:21)
[2024-12-22 18:38] VITALS: BP 113/63; PULSE 70; RESP 16; O2SAT 100
[2024-12-22 19:35] VITALS: BP 116/56; PULSE 59; RESP 18; O2SAT 98
== END 2024-12-22 19:36 | disposition home or self-care (01) ==
PROVIDERS: Emergency Provider Physician Assistant
DX: Z04.1 Encounter for examination and observation following transport accident (principal); R56.9 Unspecified convulsions; F12.90 Cannabis use, unspecified, uncomplicated
CPT/HCPCS: 70450; 71260; 72125; 74177; 99285; J9999